=== PATIENT | female | born 1990 | race Two or more races ===

== ENCOUNTER 2025-07-01 08:30 | Outpatient (RCR) | payer MEDICAID, SELFPAY ==
--- NOTE | 2025-06-21 18:32 | PTNOTE_ITS ---
PT OP Initial Eval Patient Information Outpatient Physical Therapy Treatment Date: 06/21/25 Visit Reasons: low back pain Medical Diagnosis: M54.50 Treatment Dx #1: LBP with radiculopathy Start of Care: 06/21/25 Date of Onset: 1 yr ago Smoking Status Smoking Status: Never smoker Initial Assessment Subjective: Pt reports LBP that radiates down the R LE x1 yr. Increased pain with bending, lifting and prolonged sitting. This limits lifting and HH chore tolerances. PMH: HTN Imaging: L5-S1 3 mm central lumbar disc bulge, L4-L5 4 mm central lumbar disc bulge with moderate overall spinal stenosis, L3-L4 partially extruded 8 mm central lumbar disc bulge Pt goal: to get rid of the pain Objective: Trunk ArOM: ? B SB 50% of normal with pain ? Extension: 20% with pain around L4-5, L5-S1 ? Flexion: 10 from floor with LBP ? B rotation: 60% with pain ? R SLR ROM: 45 deg. L SLR: 50 deg with posterior knee neural tension, LBP ? TTP: moderate paraspinals L5-S1 ? Neuro: L SLR: positive Assessment: Pt presents with trunk flexion sensitivity and overlying myofascial pain ? and TTP around L5-S1 consistent with ? lower lumbar disc bulge(s) with radiculopathy. Pt requires skilled therapy in order to decrease ? pain and improve sitting/standing tolerance and has poor rehab potential due to large bulge at L3-4. Eval ?followed by HEP printout. Short Term and [facility] Goals 1. Ind with HEP ? 2. Improved sitting/standing tolerance to 30 minutes with <=4/10 LBP ? 3. Decreased lower paraspinal TTP from mod to min 4. Improved HH chore tolerance to at least 30 minutes with <=3/10 LBP and no ?increase in LE ssx Treatment Plan 1. Manual therapy ? 2. Therex ? 3. Modalities as indicated, moist heat, ice, estim, mechanical traction Frequency and Duration: 1-2x a week for 12 visits plus the evaluation Certification Dates: 06/21/25 to 09/19/25 Procedure Charges OP PT Eval Mod Complex 30 minutes: Yes
--- NOTE | 2025-06-29 08:44 | PT.ODAYNRPT ---
PT Outpatient Daily Note OP Daily Note Outpatient Physical Therapy Treatment Date: 06/29/25 Visit Reasons: low back pain Subjective: The lower back isn't hurting much today and she is doing HEP Objective: See F/S for therex Mechanical traction x7' at 40 lbs Assessment: Pt can do prone on elbows with low LBP but we didn't progress to pressups yet Plan: Continue per POC Length of Time (minutes) of Treatment: 30 Minutes Procedure Charges Therapeutic Exercise 30 minutes: Yes
--- NOTE | 2025-07-01 17:28 | PT.ODAYNRPT ---
PT Outpatient Daily Note OP Daily Note Outpatient Physical Therapy Treatment Date: 07/01/25 Visit Reasons: low back pain Subjective: The lower back isn't hurting much today and she is doing HEP Objective: See F/S for therex Mechanical traction x7' at 40 lbs Assessment: Pt can do prone on elbows with low LBP but we didn't progress to pressups yet Plan: Continue per POC Length of Time (minutes) of Treatment: 30 Minutes Procedure Charges Therapeutic Exercise 30 minutes: Yes
== END 2025-07-01 23:59 | disposition home or self-care (01) ==
LOC: CPTX 08:30
PROVIDERS: Referring Provider Nurse Practitioner; Visit Provider Nurse Practitioner
DX: M51.16 Intervertebral disc disorders with radiculopathy, lumbar region (principal); M48.061 Spinal stenosis, lumbar region without neurogenic claudication; I10 Essential (primary) hypertension
CPT/HCPCS: 97110; 97162

== ENCOUNTER 2025-07-15 09:00 | Outpatient (RCR) | payer MEDICAID, SELFPAY ==
--- NOTE | 2025-07-05 10:57 | PT.ODAYNRPT ---
PT Outpatient Daily Note OP Daily Note Outpatient Physical Therapy Treatment Date: 07/05/25 Visit Reasons: low back pain Subjective: The lower back is hurting a lot and she stopped the prone on elbows as part of HEP Objective: See F/S for therex Mechanical traction x7' at 40 lbs Assessment: Pt unable to do prone on elbows today due to pain Plan: Continue per POC Length of Time (minutes) of Treatment: 30 Minutes Procedure Charges Therapeutic Exercise 30 minutes: Yes
--- NOTE | 2025-07-08 09:07 | PT.ODAYNRPT ---
PT Outpatient Daily Note OP Daily Note Outpatient Physical Therapy Treatment Date: 07/08/25 Visit Reasons: low back pain Subjective: The lower back is hurting a lot and she stopped the prone on elbows as part of HEP Objective: See F/S for therex Mechanical traction x7' at 40 lbs Assessment: Pt unable to do prone on elbows due to pain consistent with extruded 8mm bulge at L3-4 Plan: Continue per POC Length of Time (minutes) of Treatment: 30 Minutes Procedure Charges Therapeutic Exercise 30 minutes: Yes
--- NOTE | 2025-07-13 10:06 | PT.ODAYNRPT ---
PT Outpatient Daily Note OP Daily Note Outpatient Physical Therapy Treatment Date: 07/13/25 Visit Reasons: low back pain Subjective: Constant LBP, little relief with therapy visits and she stopped the prone on elbows as part of HEP Objective: See F/S for therex Mechanical traction x7' at 40 lbs Assessment: Slow progress with goals due to continued LBP. Pt unable to do prone on elbows due to pain consistent with extruded 8mm bulge at L3-4 Plan: Continue per POC Length of Time (minutes) of Treatment: 30 Minutes Procedure Charges Therapeutic Exercise 30 minutes: Yes
--- NOTE | 2025-07-15 09:04 | PT.ODAYNRPT ---
PT Outpatient Daily Note OP Daily Note Outpatient Physical Therapy Treatment Date: 07/15/25 Visit Reasons: low back pain Subjective: Constant LBP, little relief with therapy visits and she stopped the prone on elbows as part of HEP Objective: See F/S for therex Mechanical traction x7' at 40 lbs Assessment: Slow progress with goals due to continued LBP. Pt unable to do prone on elbows due to pain consistent with extruded 8mm bulge at L3-4 Plan: Continue per POC Length of Time (minutes) of Treatment: 30 Minutes Procedure Charges Therapeutic Exercise 30 minutes: Yes
--- NOTE | 2025-07-15 09:29 | PT.ODS1RPT ---
PT OP Progress/Discharge Note Date of Service: 07/15/25 Progress Note/DC Note Progress Note/Discharge Note: DC Note Patient Information Visit Reasons: low back pain Service Continue Service or Discharge: Discharge Discharge Date: 07/15/25 Status Subjective: Constant LBP, temporary relief with therapy visits. Pt is doing HEP with temeporary relief but pain returns when she sits. Objective: See F/S for therex Mechanical traction x7' at 40 lbs Objective findings are the same as the evaluation Assessment: Pt has attended the evaluation and 6 Rx sessions with limited and slow progress with goals due to continued LBP. Pt unable to do prone on elbows due to pain consistent with extruded 8mm bulge at L3-4. She is not making progress with care home therapy goals but she is independent with HEP to meet that goal and has a little less TTP of L/S. Plan: D/C with HEP Procedure Charges Therapeutic Exercise 30 minutes: Yes
== END 2025-08-01 23:59 | disposition home or self-care (01) ==
LOC: CPTX 09:00
PROVIDERS: PCP Nurse Practitioner; Referring Provider Nurse Practitioner; Visit Provider Nurse Practitioner
DX: M54.16 Radiculopathy, lumbar region (principal); I10 Essential (primary) hypertension
CPT/HCPCS: 97110